=== PATIENT | female | born 1970 | race American Indian/Alaskan Native ===

== ENCOUNTER 2017-09-30 00:02 | Emergency (ER) | payer BC, OTHER ==
[2017-09-30 01:37] VITALS: BP 154/101
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
== END 2017-09-30 04:28 | disposition home or self-care (01) ==
LOC: ED 00:02
DX: M79.1 Myalgia (principal); R51 Headache; E11.9 Type 2 diabetes mellitus without complications; V49.09XA Driver injured in collision with other motor vehicles in nontraffic accident, initial encounter; Y93.89 Activity, other specified; Y99.8 Other external cause status; Y92.488 Other paved roadways as the place of occurrence of the external cause
CPT/HCPCS: 70450; 72125